=== PATIENT | female | born 1990 | race Caucasian/White ===

== ENCOUNTER 2017-10-10 09:52 | Outpatient (CLI) | payer OTHER ==
[2017-10-10 11:40] LABS: CLARITY,URINE CLOUDY (Clear); COLOR,URINE YELLOW (Yellow); GLUCOSE, URINE NEGATIVE (Neg); KETONES,URINE NEGATIVE (Neg); LEUKOCYTE ESTERASE ,URINE NEGATIVE (Neg); NITRITES, URINE NEGATIVE (Neg); OCCULT BLOOD,URINE NEGATIVE (Neg); PH,URINE 7.5 (4.8-8.0); PROTEIN,URINE NEGATIVE (Neg); UROBILINOGEN,URINE 0.2 E.U/dL (0.2-1.0)
[2017-10-10 11:40] LABS: BASOPHILS % (AUTO) 0.5 % (0-1); EOSINOPHILS # (AUTO) 0.2 X10'3 (0-0.9); EOSINOPHILS % (AUTO) 2.8 % (0-6); HEMATOCRIT 40.7 % (35.0-45.0); HEMOGLOBIN 13.4 g/dl (12.0-16.0); LYMPHOCYTES # (AUTO) 2.3 X10'3 (1.1-4.8); LYMPHOCYTES % (AUTO) 26.3 % (21-51); MEAN CORPUSCULAR HEMOGLOBIN 30.4 PG (27.0-31.0); MEAN CORPUSCULAR HGB CONC 32.9 % (33.0-36.5); MEAN CORPUSCULAR VOLUME 92.3 FL (78-98); MEAN PLATELET VOLUME 9.1 FL (7.4-10.4); MONOCYTES # (AUTO) 0.5 X10'3 (0-0.9); MONOCYTES % (AUTO) 6.3 % (2-12); NEUTROPHILS # (AUTO) 5.5 X10'3 (1.8-7.7); NEUTROPHILS % (AUTO) 64.1 % (42-75); PLATELET COUNT 253 X10'3 (140-440); RED BLOOD COUNT 4.41 X10'6 (4.20-5.60); RED CELL DISTRIBUTION WIDTH 16.5 % (11.5-14.5); WHITE BLOOD COUNT 8.6 X10'3 (4.5-11.0)
[2017-10-10 11:43] LABS: UA COLLECTION TYPE CLN CATCH MIDSTREAM
[2017-10-10 11:54] LABS: BACTERIA,URINE NONE SEEN /HPF (Neg); RBC,URINE 0-2 /HPF (0-2); SQUAMOUS EPITHELIAL CELL,UR FEW /LPF (FEW); WBC,URINE 0-4 /HPF (0-4)
[2017-10-10 11:55] LABS: AMORPHOUS PHOSPHATES 4+
[2017-10-10 12:12] LABS: ALANINE AMINOTRANSFERASE 29 U/L (12-78); ALBUMIN/GLOBULIN RATIO 1.4 (1.1-1.5); ALKALINE PHOSPHATASE 71 IU/L (46-116); ANION GAP 6 (8-16); ASPARTATE AMINO TRANSFERASE 23 U/L (10-37); BILIRUBIN,TOTAL 0.6 MG/DL (0.1-1.0); BLOOD UREA NITROGEN 17 MG/DL (7-18); BUN/CREATININE RATIO 20.2 (6.6-38.0); CALCIUM 8.9 MG/DL (8.5-10.1); CHLORIDE 105 MMOL/L (99-107); CHOL/HDL RATIO 2.3 (0.00-4.99); CHOLESTEROL 132 MG/DL (0-200); CREATININE 0.84 MG/DL (0.40-0.90); GLUCOSE 76 MG/DL (70-104); HDL CHOLESTEROL 57 MG/DL (35-60); LDL CHOLESTEROL 70 MG/DL (50-100); POTASSIUM 3.8 MMOL/L (3.5-5.1); SODIUM 142 MMOL/L (135-145); TOTAL CARBON DIOXIDE 31.3 MMOL/L (24-32); TOTAL PROTEIN 6.9 G/DL (6.4-8.2); TRIGLYCERIDES 67 MG/DL (20-135); eGFR 81 ML/MIN
== END 2017-10-10 23:59 | disposition home or self-care (01) ==
LOC: RAD 09:52
PROVIDERS: ATTEND Family Medicine
DX: Z00.01 Encounter for general adult medical examination with abnormal findings (principal); R59.9 Enlarged lymph nodes, unspecified
CPT/HCPCS: 36415; 71046; 80053; 80061; 81001; 84439; 84443; 85025

== ENCOUNTER 2018-06-04 20:51 | Emergency (ER) | payer OTHER ==
[~2018-06-04] VITALS: Ht 167.6 cm; Wt 68.2 kg
[2018-06-04 21:14] VITALS: BP 133/76
[2018-06-04] MEDS ORDERED: ketorolac tromethamine 15mg/ml inj. IM ONE (22:05)
== END 2018-06-04 22:33 | disposition home or self-care (01) ==
LOC: ER 20:51
DX: M25.522 Pain in left elbow (principal)
CPT/HCPCS: 73080; 96372; 99283; J1885

== ENCOUNTER 2018-06-05 15:56 | Outpatient (CLI) | payer OTHER ==
[2018-06-05 15:58] VITALS: BP 107/76
== END 2018-06-05 16:33 | disposition home or self-care (01) ==
LOC: ORTHO 15:56
PROVIDERS: ATTEND Nurse Practitioner Family
DX: M25.522 Pain in left elbow (principal)
CPT/HCPCS: 99213; A4590

== ENCOUNTER 2018-06-12 11:08 | Outpatient (CLI) | payer OTHER ==
[2018-06-12 11:09] VITALS: BP 106/67
== END 2018-06-12 12:15 | disposition home or self-care (01) ==
LOC: ORTHO 11:08
PROVIDERS: ATTEND Nurse Practitioner Family
DX: S52.125D Nondisplaced fracture of head of left radius, subsequent encounter for closed fracture with routine healing (principal); S59.902D Unspecified injury of left elbow, subsequent encounter; S42.402D Unspecified fracture of lower end of left humerus, subsequent encounter for fracture with routine healing
CPT/HCPCS: 73080; 99213; A4590

== ENCOUNTER 2018-06-20 10:38 | Outpatient (CLI) | payer OTHER ==
[2018-06-20 10:35] VITALS: BP 100/58
== END 2018-06-20 11:08 | disposition home or self-care (01) ==
LOC: ORTHO 10:38
PROVIDERS: ATTEND Nurse Practitioner Family
DX: S52.135D Nondisplaced fracture of neck of left radius, subsequent encounter for closed fracture with routine healing (principal); W19.XXXD Unspecified fall, subsequent encounter
CPT/HCPCS: 73080; G0463

== ENCOUNTER 2018-07-04 10:41 | Outpatient (CLI) | payer OTHER | END 2018-07-04 11:45 | disposition home or self-care (01) | LOC: ORTHO 10:41 | PROVIDERS: ATTEND Nurse Practitioner Family | DX: S52.132D Displaced fracture of neck of left radius, subsequent encounter for closed fracture with routine healing (principal); S59.802D Other specified injuries of left elbow, subsequent encounter; Z60.2 Problems related to living alone; W18.30XD Fall on same level, unspecified, subsequent encounter | CPT/HCPCS: 73080; 99213 ==

== ENCOUNTER 2018-07-18 11:28 | Outpatient (CLI) | payer OTHER ==
[2018-07-18 11:28] VITALS: BP 112/63
== END 2018-07-18 11:55 | disposition home or self-care (01) ==
LOC: ORTHO 11:28
PROVIDERS: ATTEND Nurse Practitioner Family
DX: S52.132D Displaced fracture of neck of left radius, subsequent encounter for closed fracture with routine healing (principal); S59.802D Other specified injuries of left elbow, subsequent encounter; Z60.2 Problems related to living alone; W19.XXXD Unspecified fall, subsequent encounter
CPT/HCPCS: 73080; 99213

== ENCOUNTER 2018-07-31 11:13 | Outpatient (CLI) | payer OTHER ==
[2018-07-31 11:16] VITALS: BP 109/60
== END 2018-07-31 11:53 | disposition home or self-care (01) ==
LOC: ORTHO 11:13
PROVIDERS: ATTEND Nurse Practitioner Family
DX: S52.135D Nondisplaced fracture of neck of left radius, subsequent encounter for closed fracture with routine healing (principal); W19.XXXD Unspecified fall, subsequent encounter
CPT/HCPCS: 73080; 99213

== ENCOUNTER 2019-02-12 08:52 | Outpatient (CLI) | payer OTHER ==
[2019-02-12 09:39] LABS: BASOPHILS % (AUTO) 0.3 % (0-1); EOSINOPHILS # (AUTO) 0.1 X10'3 (0-0.9); HEMATOCRIT 42.3 % (35.0-45.0); LYMPHOCYTES # (AUTO) 1.6 X10'3 (1.1-4.8); LYMPHOCYTES % (AUTO) 25.4 % (21-51); MEAN CORPUSCULAR HEMOGLOBIN 33.1 PG (27.0-31.0); MEAN CORPUSCULAR HGB CONC 33.2 g/dL (33.0-36.5); MEAN PLATELET VOLUME 8.4 FL (7.4-10.4); MONOCYTES # (AUTO) 0.4 X10'3 (0-0.9); MONOCYTES % (AUTO) 5.5 % (2-12); NEUTROPHILS # (AUTO) 4.3 X10'3 (1.8-7.7); NEUTROPHILS % (AUTO) 66.8 % (42-75); PLATELET COUNT 207 X10'3 (140-440); RED BLOOD COUNT 4.23 X10'6 (4.20-5.60); RED CELL DISTRIBUTION WIDTH 13.8 % (11.5-14.5); WHITE BLOOD COUNT 6.5 X10'3 (4.5-11.0)
[2019-02-12 10:22] LABS: HEMOGLOBIN A1C 5.3 % (4.5-6.2)
[2019-02-13 08:34] LABS: ESTRADIOL 29.6 pg/mL (.); FSH, SERUM 4.3 mIU/mL (.); LUTEINIZING HORMONE 3.6 mIU/mL (.); PROLACTIN 12.2 ng/mL (4.8-23.3); THIIODOTHRONINE, FREE, SERUM 2.7 pg/mL (2.0-4.4)
[2019-02-14 15:09] LABS: TESTOSTERONE, FREE, DIRECT 3.5 pg/mL (0.0-4.2)
== END 2019-02-12 23:59 | disposition home or self-care (01) ==
LOC: LAB 08:52
PROVIDERS: ATTEND Obstetrics & Gynecology
DX: N92.1 Excessive and frequent menstruation with irregular cycle (principal); N92.0 Excessive and frequent menstruation with regular cycle; R53.83 Other fatigue
CPT/HCPCS: 36415; 82670; 83001; 83002; 83036; 84146; 84402; 84403; 84439; 84443; 84481; 85025

== ENCOUNTER 2019-05-05 12:40 | Emergency (ER) | payer OTHER ==
[~2019-05-05] VITALS: Ht 167.6 cm; Wt 70.9 kg
[2019-05-05] MEDS ORDERED: ERYT1OIN6 EACHEYE (13:04)
[2019-05-05 13:16] VITALS: BP 118/69
== END 2019-05-05 13:19 | disposition home or self-care (01) ==
LOC: ER 12:41
DX: H10.33 Unspecified acute conjunctivitis, bilateral (principal); Z60.2 Problems related to living alone; Z79.2 Long term (current) use of antibiotics
CPT/HCPCS: 99283

== ENCOUNTER 2022-04-15 13:06 | Outpatient (CLI) | payer OTHER | END 2022-04-15 23:59 | disposition home or self-care (01) | LOC: LAB 13:06 | PROVIDERS: ATTEND Obstetrics & Gynecology | DX: Z34.81 Encounter for supervision of other normal pregnancy, first trimester (principal) | CPT/HCPCS: 36415 ==

== ENCOUNTER 2022-05-20 12:58 | Outpatient (CLI) | payer BC ==
[2022-05-20 15:52] LABS: BASOPHILS % (AUTO) 0.2 % (0-1); EOSINOPHILS # (AUTO) 0.2 X10'3 (0-0.9); EOSINOPHILS % (AUTO) 1.3 % (0-6); HEMATOCRIT 39.4 % (35.0-45.0); HEMOGLOBIN 12.9 g/dl (12.0-16.0); LYMPHOCYTES # (AUTO) 1.8 X10'3 (1.1-4.8); LYMPHOCYTES % (AUTO) 16.3 % (21-51); MEAN CORPUSCULAR HEMOGLOBIN 32.3 PG (27.0-31.0); MEAN CORPUSCULAR HGB CONC 32.7 g/dL (33.0-36.5); MEAN CORPUSCULAR VOLUME 98.8 FL (78-98); MEAN PLATELET VOLUME 8.3 FL (7.4-10.4); MONOCYTES # (AUTO) 0.6 X10'3 (0-0.9); NEUTROPHILS # (AUTO) 8.7 X10'3 (1.8-7.7); NEUTROPHILS % (AUTO) 77.2 % (42-75); PLATELET COUNT 230 X10'3 (140-440); RED BLOOD COUNT 3.98 X10'6 (4.20-5.60); RED CELL DISTRIBUTION WIDTH 14.3 % (11.5-14.5); WHITE BLOOD COUNT 11.2 X10'3 (4.5-11.0)
[2022-05-20 16:04] LABS: HEMOGLOBIN A1C 5.5 % (4.5-6.2)
[2022-05-20 16:34] LABS: HIV ANTIBODY 1&2 RAPID NON-REACTIVE (Neg)
[2022-05-22 07:13] LABS: VARICELLA-ZOSTER VIRUS AB, IGG 859 index (Immune >165)
[2022-05-22 09:16] LABS: HBSAG SCREEN Negative (Negative); HEPATITIS C ANTIBODY 0.1 s/co ratio (0.0-0.9)
[2022-06-01 12:46] LABS: RUBELLA ANTIBODIES, IGG SEE COMMENTS
== END 2022-05-20 23:59 | disposition home or self-care (01) ==
LOC: LAB 12:58
PROVIDERS: ATTEND Family Medicine
DX: Z34.81 Encounter for supervision of other normal pregnancy, first trimester (principal)
CPT/HCPCS: 36415; 83036; 84439; 84443; 85025; 86592; 86703; 86762; 86803; 86885; 86900; 86901; 87077; 87088; 87186; 87340

== ENCOUNTER 2022-07-07 02:57 | Emergency (ER) | payer BC ==
[~2022-07-07] VITALS: Ht 167.6 cm; Wt 70.7 kg
[2022-07-07 03:48] LABS: BASOPHILS % (AUTO) 0.1 % (0-1); EOSINOPHILS % (AUTO) 0.2 % (0-6); HEMATOCRIT 34.1 % (35.0-45.0); HEMOGLOBIN 11.4 g/dl (12.0-16.0); LYMPHOCYTES % (AUTO) 7.6 % (21-51); MEAN CORPUSCULAR HEMOGLOBIN 33.2 PG (27.0-31.0); MEAN CORPUSCULAR HGB CONC 33.4 g/dL (33.0-36.5); MEAN CORPUSCULAR VOLUME 99.3 FL (78-98); MEAN PLATELET VOLUME 6.6 FL (7.4-10.4); MONOCYTES % (AUTO) 7.4 % (2-12); NEUTROPHILS # (AUTO) 11.6 X10'3 (1.8-7.7); NEUTROPHILS % (AUTO) 84.7 % (42-75); PLATELET COUNT 350 X10'3 (140-440); RED BLOOD COUNT 3.43 X10'6 (4.20-5.60); RED CELL DISTRIBUTION WIDTH 13.8 % (11.5-14.5); WHITE BLOOD COUNT 13.6 X10'3 (4.5-11.0)
[2022-07-07 03:51] LABS: URINE HCG POSITIVE (NEG)
[2022-07-07 03:53] LABS: CLARITY,URINE SLIGHTLY CLOUDY (Clear); COLOR,URINE YELLOW (Yellow); GLUCOSE, URINE NEGATIVE (Neg); KETONES,URINE NEGATIVE (Neg); LEUKOCYTE ESTERASE ,URINE LARGE (Neg); NITRITES, URINE NEGATIVE (Neg); OCCULT BLOOD,URINE TRACE-INTACT (Neg); PROTEIN,URINE NEGATIVE (Neg); UROBILINOGEN,URINE 0.2 E.U/dL (0.2-1.0)
[2022-07-07 04:02] LABS: UA COLLECTION TYPE CLN CATCH MIDSTREAM
[2022-07-07 04:02] LABS: ALANINE AMINOTRANSFERASE 164 U/L (12-78); ALBUMIN 2.4 G/DL (3.4-5.0); ALBUMIN/GLOBULIN RATIO 0.6 (1.1-1.5); ALKALINE PHOSPHATASE 145 IU/L (46-116); ANION GAP 10 (8-16); ASPARTATE AMINO TRANSFERASE 111 U/L (10-37); BILIRUBIN,TOTAL 0.3 MG/DL (0.1-1.0); BLOOD UREA NITROGEN 7 MG/DL (7-18); CALCIUM 8.9 MG/DL (8.5-10.1); CHLORIDE 101 MMOL/L (99-107); GLUCOSE 96 MG/DL (70-104); LIPASE 75 U/L (73-393); POTASSIUM 3.3 MMOL/L (3.5-5.1); SODIUM 136 MMOL/L (135-145); TOTAL CARBON DIOXIDE 25.3 MMOL/L (24-32); TOTAL PROTEIN 6.5 G/DL (6.4-8.2); eGFR > 90 ML/MIN
[2022-07-07 04:05] LABS: BACTERIA,URINE 3+ /HPF (Neg); MUCUS STRANDS FEW /LPF (Neg); RBC,URINE 0-2 /HPF (0-2); SQUAMOUS EPITHELIAL CELL,UR FEW /LPF (FEW); TRANSITIONAL EPI CELLS,URINE FEW /HPF
[2022-07-07] MEDS ORDERED: normal saline 1000ml 1,000 ML IV ONE (04:35)
[2022-07-07] MEDS ORDERED: CefTRIAXone 2gm/D5W 50ml BAG 50 ML IV ONE (04:35)
[2022-07-07] MEDS ORDERED: CefTRIAXone/D5W-Rocephin 1gm 50 ML IV ONE (05:15)
[2022-07-07] MEDS: CefTRIAXone/D5W-Rocephin 1gm 50 ML IV ONE ×2 (05:25→05:37)
[2022-07-07] MEDS ORDERED: CEPH250T PO (05:59)
[2022-07-07] MEDS ORDERED: potassium bicarbonate/cit acid 25mEq tablet.effervescent PO ONE (06:55)
[2022-07-07 07:02] VITALS: BP 106/74
[2022-07-07] MEDS ORDERED: acetaminophen 325mg tablet PO ONE (07:35)
== END 2022-07-07 07:57 | disposition home or self-care (01) ==
LOC: ER 02:58
DX: O23.42 Unspecified infection of urinary tract in pregnancy, second trimester (principal); N39.0 Urinary tract infection, site not specified; Z20.822 Contact with and (suspected) exposure to COVID-19; O26.892 Other specified pregnancy related conditions, second trimester; M79.18 Myalgia, other site; Z60.2 Problems related to living alone; Z79.899 Other long term (current) drug therapy; Z3A.22 22 weeks gestation of pregnancy
CPT/HCPCS: 36415; 80053; 81001; 81025; 83690; 84145; 85025; 87077; 87088; 87186; 87502; 87503; 87635; 96365; 99284; C9803; J0696; J7030

== ENCOUNTER 2022-07-23 12:36 | Outpatient (CLI) | payer BC | END 2022-07-23 23:59 | disposition home or self-care (01) | LOC: LAB 12:36 | PROVIDERS: ATTEND Obstetrics & Gynecology | DX: R30.0 Dysuria (principal) | CPT/HCPCS: 87088; 87186 ==

== ENCOUNTER 2022-08-09 09:05 | Outpatient (CLI) | payer BC ==
[2022-08-09 09:54] LABS: BASOPHILS % (AUTO) 0.3 % (0-1); EOSINOPHILS # (AUTO) 0.1 X10'3 (0-0.9); EOSINOPHILS % (AUTO) 0.6 % (0-6); HEMATOCRIT 35.6 % (35.0-45.0); HEMOGLOBIN 11.7 g/dl (12.0-16.0); LYMPHOCYTES # (AUTO) 2.1 X10'3 (1.1-4.8); LYMPHOCYTES % (AUTO) 22.5 % (21-51); MEAN CORPUSCULAR HEMOGLOBIN 32.7 PG (27.0-31.0); MEAN CORPUSCULAR HGB CONC 32.7 g/dL (33.0-36.5); MEAN CORPUSCULAR VOLUME 100.2 FL (78-98); MONOCYTES # (AUTO) 0.7 X10'3 (0-0.9); MONOCYTES % (AUTO) 7.7 % (2-12); NEUTROPHILS # (AUTO) 6.5 X10'3 (1.8-7.7); NEUTROPHILS % (AUTO) 68.9 % (42-75); PLATELET COUNT 261 X10'3 (140-440); RED BLOOD COUNT 3.56 X10'6 (4.20-5.60); RED CELL DISTRIBUTION WIDTH 14.7 % (11.5-14.5); WHITE BLOOD COUNT 9.4 X10'3 (4.5-11.0)
[2022-08-09 10:00] LABS: GLUCOSE,FASTING GESTATIONAL 87 MG/DL (51-92)
== END 2022-08-09 23:59 | disposition home or self-care (01) ==
LOC: RAD 09:05
PROVIDERS: ATTEND Family Medicine
DX: Z34.82 Encounter for supervision of other normal pregnancy, second trimester (principal)
CPT/HCPCS: 36415; 85025; 86592

== ENCOUNTER 2022-08-11 13:35 | Outpatient (CLI) | payer BC | END 2022-08-11 23:59 | disposition home or self-care (01) | LOC: LAB 13:35 | PROVIDERS: ATTEND Obstetrics & Gynecology | DX: O23.12 Infections of bladder in pregnancy, second trimester (principal); Z3A.27 27 weeks gestation of pregnancy | CPT/HCPCS: 87077; 87088; 87186 ==

== ENCOUNTER 2022-08-17 07:21 | Outpatient (CLI) | payer BC | END 2022-08-17 23:59 | disposition home or self-care (01) | LOC: RAD 07:21 | PROVIDERS: ATTEND Obstetrics & Gynecology | DX: O99.891 Other specified diseases and conditions complicating pregnancy (principal); N13.30 Unspecified hydronephrosis; O23.12 Infections of bladder in pregnancy, second trimester; Z3A.25 25 weeks gestation of pregnancy | CPT/HCPCS: 76770 ==

== ENCOUNTER 2023-12-26 07:16 | Outpatient (CLI) | payer BC ==
[2023-12-26 08:05] LABS: BASOPHILS % (AUTO) 0.2 % (0-1); EOSINOPHILS # (AUTO) 0.2 X10'3 (0-0.9); HEMATOCRIT 40.3 % (35.0-45.0); HEMOGLOBIN 13.4 g/dl (12.0-16.0); LYMPHOCYTES # (AUTO) 1.9 X10'3 (1.1-4.8); LYMPHOCYTES % (AUTO) 19.2 % (21-51); MEAN CORPUSCULAR HEMOGLOBIN 32.7 PG (27.0-31.0); MEAN CORPUSCULAR HGB CONC 33.2 g/dL (33.0-36.5); MEAN CORPUSCULAR VOLUME 98.4 FL (78-98); MEAN PLATELET VOLUME 7.9 FL (7.4-10.4); MONOCYTES # (AUTO) 0.5 X10'3 (0-0.9); MONOCYTES % (AUTO) 4.7 % (2-12); NEUTROPHILS # (AUTO) 7.3 X10'3 (1.8-7.7); NEUTROPHILS % (AUTO) 73.9 % (42-75); PLATELET COUNT 230 X10'3 (140-440); RED BLOOD COUNT 4.09 X10'6 (4.20-5.60); RED CELL DISTRIBUTION WIDTH 13.9 % (11.5-14.5); WHITE BLOOD COUNT 9.9 X10'3 (4.5-11.0)
[2023-12-26 08:11] LABS: HEMOGLOBIN A1C 5.3 % (4.5-6.2)
[2023-12-26 08:36] LABS: ALANINE AMINOTRANSFERASE 22 U/L (12-78); ALBUMIN 3.2 G/DL (3.4-5.0); ALKALINE PHOSPHATASE 57 IU/L (46-116); ANION GAP 6 (8-16); ASPARTATE AMINO TRANSFERASE 13 U/L (10-37); BILIRUBIN,TOTAL 0.3 MG/DL (0.1-1.0); BLOOD UREA NITROGEN 10 MG/DL (7-18); BUN/CREATININE RATIO 13.9 (10.0-20.0); CALCIUM 8.9 MG/DL (8.5-10.1); CHLORIDE 105 MMOL/L (99-107); CHOL/HDL RATIO 2.2 (0.00-4.99); CHOLESTEROL 132 MG/DL (0-200); CREATININE 0.72 MG/DL (0.40-0.90); FREE T4 (FREE THYROXINE) 0.82 NG/DL (0.73-1.40); GLUCOSE 77 MG/DL (70-104); HDL CHOLESTEROL 59 MG/DL (35-60); LDL CHOLESTEROL 63 MG/DL (50-100); POTASSIUM 3.5 MMOL/L (3.5-5.1); SODIUM 137 MMOL/L (135-145); THYROID STIMULATING HORMONE 2.38 ulU/ml (0.34-4.50); TOTAL CARBON DIOXIDE 25.6 MMOL/L (24-32); TOTAL PROTEIN 6.5 G/DL (6.4-8.2); TRIGLYCERIDES 65 MG/DL (20-135); eGFR > 90 ML/MIN
[2023-12-26 09:08] LABS: HIV ANTIBODY 1&2 RAPID NON-REACTIVE (Neg)
== END 2023-12-26 23:59 | disposition home or self-care (01) ==
LOC: LAB 07:16
PROVIDERS: ATTEND Obstetrics & Gynecology
DX: Z13.220 Encounter for screening for lipoid disorders (principal); R53.83 Other fatigue
CPT/HCPCS: 36415; 80053; 80061; 82607; 82746; 83036; 84439; 84443; 85025; 86592; 86703; 86762; 86803; 86885; 86900; 86901; 87088; 87340; 87389; 87522

== ENCOUNTER 2024-03-30 07:59 | Outpatient (CLI) | payer BC ==
[2024-03-30 08:27] LABS: GESTATIONAL GLU TOL INTERP SEE INTERP
[2024-03-30 08:37] LABS: BASOPHILS % (AUTO) 0.3 % (0-1); EOSINOPHILS # (AUTO) 0.3 X10'3 (0-0.9); EOSINOPHILS % (AUTO) 2.2 % (0-6); HEMATOCRIT 41.4 % (35.0-45.0); HEMOGLOBIN 13.9 g/dl (12.0-16.0); LYMPHOCYTES % (AUTO) 15.9 % (21-51); MEAN CORPUSCULAR HEMOGLOBIN 34.1 PG (27.0-31.0); MEAN CORPUSCULAR HGB CONC 33.5 g/dL (33.0-36.5); MEAN CORPUSCULAR VOLUME 101.6 FL (78-98); MEAN PLATELET VOLUME 8.4 FL (7.4-10.4); MONOCYTES # (AUTO) 0.7 X10'3 (0-0.9); MONOCYTES % (AUTO) 5.4 % (2-12); NEUTROPHILS # (AUTO) 9.8 X10'3 (1.8-7.7); NEUTROPHILS % (AUTO) 76.2 % (42-75); PLATELET COUNT 223 X10'3 (140-440); RED BLOOD COUNT 4.08 X10'6 (4.20-5.60); RED CELL DISTRIBUTION WIDTH 13.9 % (11.5-14.5); WHITE BLOOD COUNT 12.8 X10'3 (4.5-11.0)
[2024-03-30 08:57] LABS: GLUCOSE,FASTING GESTATIONAL 82 MG/DL (51-92)
[2024-04-03 12:15] LABS: GLUCOSE,FASTING (TOLERANCE) 82 MG/DL (70-104)
== END 2024-03-30 23:59 | disposition home or self-care (01) ==
LOC: LAB 07:59
PROVIDERS: ATTEND Obstetrics & Gynecology
DX: Z34.83 Encounter for supervision of other normal pregnancy, third trimester (principal)
CPT/HCPCS: 36415; 82951; 82952; 85025; 86592